=== PATIENT | female | born 1990 | race Caucasian/White ===

== ENCOUNTER 2019-03-15 21:17 | Inpatient (IN) | payer BC ==
[2019-03-15] MEDS ORDERED: Carboprost Tromethamine 250 MCG/1 ML Amp IM PRN (22:37)
[2019-03-15] MEDS ORDERED: Misoprostol 200 MCG Tab PO PRN (22:37)
[2019-03-15] MEDS ORDERED: Lidocaine 1% 50 ML MDV INJECT PRN (22:37)
[2019-03-15] MEDS ORDERED: Sodium Chloride 0.9% 10 ML SDV IV PRN (22:37)
[2019-03-15] MEDS ORDERED: Water For Irrigation,Sterile 1,000 ML Container IRR PRN (22:37)
[2019-03-15] MEDS ORDERED: Tranexamic Acid 1,000 MG in Sodium Chloride 0.9% 100 ML IV PRN (22:37)
[2019-03-15] MEDS ORDERED: Sodium Chloride 0.9% 10 ML Syringe FLUSH PRN (22:37)
[2019-03-15] MEDS ORDERED: Nalbuphine 10 MG/1 ML Vial IVPUSH PRN (22:37)
[2019-03-15] MEDS ORDERED: Butorphanol 1 MG/ML SDV IVPUSH PRN (22:37)
[2019-03-15] MEDS ORDERED: Methylergonovine 0.2 MG/1 ML Amp IM PRN (22:37)
[2019-03-15] MEDS ORDERED: Sodium Chloride 0.9% 2.5 ML Syringe FLUSH PRN (22:37)
[2019-03-15] MEDS ORDERED: Oxytocin/0.9 % Sodium Chloride 30 UNIT/500 ML BAG IV SCH (22:45)
[2019-03-15 23:43] LABS: CHLORIDE,CL 100 mmol/L (98-107); SODIUM,NA 133 mmol/L (136-145)
[2019-03-16] MEDS: Lactated Ringers 1,000 ML IV SCH ×3 (05:45→14:05)
[2019-03-16] MEDS ORDERED: Lidocaine HCl/EPINEPHrine 5 ML IJ ONE (06:08)
[2019-03-16] MEDS ORDERED: fentaNYL 100 MCG/2 ML SDV ONE ×2 (06:09→16:30)
[2019-03-16] MEDS ORDERED: Ropivacaine 0.2% 2 MG/ML 20 ML SDV ONE (06:09)
[2019-03-16] MEDS ORDERED: Ropivacaine HCl/PF 100 ML ONE ×2 (06:10→16:29)
--- NOTE | 2019-03-16 06:50 | PCM.PREANE ---
Preanesthetic Assessment - Anesthesia/Transfusion/Family Hx Anesthesia History: No Prior Anesthesia Family History of Anesthesia Reaction: No Transfusion History: No Prior Transfusion(s) - Review of Systems General: No Symptoms Pulmonary: No Symptoms Cardiovascular: No Symptoms Gastrointestinal: No Symptoms Neurological: No Symptoms Other: Reports: None (Denies any personal or family hx of bleeding or clotting problems) - Physical Assessment Height: 1.65 m Weight: 83.915 kg ASA Class: 2 Mental Status: Alert & Oriented x3 Airway Class: Mallampati = 2 Dentition: Reports: Normal Dentition ROM/Head Extension: Full - Lab Values: Laboratory Last Values WBC 16.46 K/uL (4.0-11.0) H 03/15/19 23:10 RBC 4.53 M/uL (4.30-5.90) 03/15/19 23:10 Hgb 14.0 g/dL (12.0-16.0) 03/15/19 23:10 Hct 40.9 % (36.0-46.0) 03/15/19 23:10 MCV 90.3 fL (80.0-98.0) 03/15/19 23:10 MCH 30.9 pg (27.0-32.0) 03/15/19 23:10 MCHC 34.2 g/dL (31.0-37.0) 03/15/19 23:10 RDW Std Deviation 42.0 fl (28.0-62.0) 03/15/19 23:10 RDW Coeff of Kiera 13 % (11.0-15.0) 03/15/19 23:10 Plt Count 248 K/uL (150-400) 03/15/19 23:10 MPV 11.20 fL (7.40-12.00) 03/15/19 23:10 Nucleated RBC % 0.0 /100WBC 03/15/19 23:10 Nucleated RBCs # 0 K/uL 03/15/19 23:10 Sodium 133 mmol/L (136-145) L 03/15/19 23:10 Potassium 4.4 mmol/L (3.5-5.1) 03/15/19 23:10 Chloride 100 mmol/L (98-107) 03/15/19 23:10 Carbon Dioxide 24.6 mmol/L (21.0-32.0) 03/15/19 23:10 BUN 14 mg/dL (7.0-18.0) 03/15/19 23:10 Creatinine 0.8 mg/dL (0.6-1.0) 03/15/19 23:10 Est Cr Clr Drug Dosing 92.53 mL/min 03/15/19 23:10 Estimated GFR (MDRD) > 60.0 ml/min 03/15/19 23:10 Glucose 103 mg/dL (74-106) 03/15/19 23:10 Uric Acid 4.7 mg/dL (2.6-7.2) 03/15/19 23:10 Calcium 8.9 mg/dL (8.5-10.1) 03/15/19 23:10 Total Bilirubin 0.5 mg/dL (0.2-1.0) 03/15/19 23:10 AST 28 IU/L (15-37) 03/15/19 23:10 ALT 33 IU/L (14-63) 03/15/19 23:10 Alkaline Phosphatase 140 U/L (46-116) H 03/15/19 23:10 Total Protein 6.6 g/dL (6.4-8.2) 03/15/19 23:10 Albumin 2.6 g/dL (3.4-5.0) L 03/15/19 23:10 Globulin 4.0 g/dL (2.6-4.0) 03/15/19 23:10 Albumin/Globulin Ratio 0.7 (0.9-1.6) L 03/15/19 23:10 Urine Color YELLOW 03/15/19 22:40 Urine Appearance HAZY 03/15/19 22:40 Urine pH 5.5 (5.0-8.0) 03/15/19 22:40 Ur Specific [place] 1.020 (1.001-1.035) 03/15/19 22:40 Urine Protein NEGATIVE mg/dL (NEGATIVE) 03/15/19 22:40 Urine Glucose (UA) NEGATIVE mg/dL (NEGATIVE) 03/15/19 22:40 Urine Ketones NEGATIVE mg/dL (NEGATIVE) 03/15/19 22:40 Urine Occult Blood LARGE (NEGATIVE) H 03/15/19 22:40 Urine Nitrite NEGATIVE (NEGATIVE) 03/15/19 22:40 Urine Bilirubin NEGATIVE (NEGATIVE) 03/15/19 22:40 Urine Urobilinogen 0.2 EU/dL (<2.0) 03/15/19 22:40 Ur Leukocyte Esterase NEGATIVE (NEGATIVE) 03/15/19 22:40 Ur Random Creatinine 57.5 mg/dL 03/15/19 22:40 U Random Total Protein 9.1 mg/dL (<11.9) 03/15/19 22:40 Protein/Creatinin Ratio 0.2 03/15/19 22:40 Membrane Rupture POSITIVE 03/15/19 21:38 Blood Type O POSITIVE 03/15/19 23:10 Antibody Screen NEGATIVE 03/15/19 23:10 - Allergies Allergies/Adverse Reactions: Allergies Allergy/AdvReac Type Severity Reaction Status Date / Time No Known Allergies Allergy Verified 02/06/14 14:02 - Acknowledgements Anesthesia Type Planned: Epidural Pt an Appropriate Candidate for the Planned Anesthesia: Yes Alternatives and Risks of Anesthesia Discussed w Pt/Guardian: Yes Pt/Guardian Understands and Agrees with Anesthesia Plan: Yes PreAnesthesia Questionnaire - Past Health History Medical/Surgical History: Denies Medical/Surgical History [employer] History: Reports: Psychiatric History: Reports: Anxiety, Depression - SUBSTANCE USE Smoking Status *Q: Never Smoker Second Hand Smoke Exposure: No Recreational Drug Use History: No - HOME MEDS Home Medications: Home Meds PNV #116/Iron Fumarate/FA/DHA [Expecta Combo Pack] 1 tab 03/06/19 [ History] - CURRENT (IN HOUSE) MEDS Current Meds: Current Medications Butorphanol Tartrate (Stadol) 1 mg IVPUSH Q1H PRN PRN Reason: Pain Carboprost Tromethamine (Hemabate Ds) 250 mcg IM ASDIRECTED PRN PRN Reason: Post Hemorrhage Lactated Ringer's (Ringers, Lactated) 1,000 mls @ 150 mls/hr IV ASDIRECTED YANCY Last Admin: 03/16/19 06:35 Dose: 999 mls/hr Oxytocin/Sodium Chloride (Oxytocin 30 Unit/500 Ml-Ns) 30 unit in 500 mls @ 500 mls/hr IV TITRATE YANCY Tranexamic Acid 1,000 mg/ (Sodium Chloride) 110 mls @ 660 mls/hr IV ONETIME PRN PRN Reason: Bleeding Lidocaine HCl (Xylocaine 1%) 50 ml INJECT ONETIME PRN PRN Reason: Laceration repair Methylergonovine Maleate (Methergine) 0.2 mg IM ASDIRECTED PRN PRN Reason: Post Hemorrhage Misoprostol (Cytotec) 200 mcg PO ONETIME PRN PRN Reason: Post Hemorrhage Nalbuphine HCl (Nubain) 10 mg IVPUSH Q1H PRN PRN Reason: Pain (severe 7-10) Sodium Chloride (Saline Flush) 10 ml FLUSH ASDIRECTED PRN PRN Reason: Keep Vein Open Sodium Chloride (Saline Flush) 2.5 ml FLUSH ASDIRECTED PRN PRN Reason: Keep Vein Open Sodium Chloride (Normal Saline) 10 ml IV ASDIRECTED PRN PRN Reason: IV Use Sterile Water (Sterile Water For Irrigation) 1,000 ml IRR ASDIRECTED PRN PRN Reason: delivery Discontinued Medications Fentanyl (Sublimaze) Confirm Administered Dose 300 mcg .ROUTE .STK-MED ONE Stop: 03/16/19 06:10 Ropivacaine (Naropin 0.2%) Confirm Administered Dose 100 mls @ as directed .ROUTE .STK-MED ONE Stop: 03/16/19 06:11 Lidocaine/Epinephrine (Lidocaine 1.5%-Epi 1:200,000) Confirm Administered Dose 5 ml IJ .STK-MED ONE Stop: 03/16/19 06:09 Ropivacaine (Naropin 0.2%) Confirm Administered Dose 20 ml .ROUTE .STK-MED ONE Stop: 03/16/19 06:10
[2019-03-16] MEDS ORDERED: Terbutaline 1 MG/ML SDV SUBCUT PRN (14:32)
[2019-03-16] MEDS ORDERED: Misoprostol 25 MCG (1/4 of 100 MCG) Tab VAG PRN ×2 (14:32)
[2019-03-16] MEDS ORDERED: Oxytocin/0.9 % Sodium Chloride 30 UNIT/500 ML BAG IV SCH (14:45)
[2019-03-16] MEDS ORDERED: Benzocaine/Menthol 20%-0.5% Spray 78 GM Cannister TOP PRN (18:44)
[2019-03-16] MEDS ORDERED: Bisacodyl 10 MG Supp RECTAL PRN (18:44)
[2019-03-16] MEDS ORDERED: Acetaminophen 500 MG Tab PO PRN ×2 (18:44)
[2019-03-16] MEDS ORDERED: Ibuprofen 400 MG Tab PO PRN (18:44)
[2019-03-16] MEDS ORDERED: Docusate Sodium 100 MG Cap PO PRN (18:44)
[2019-03-16] MEDS ORDERED: oxyCODONE 5 MG Tab PO PRN (18:44)
[2019-03-16] MEDS ORDERED: Witch Hazel Medicated Pads 40/Jar TOP PRN (18:44)
[2019-03-16] MEDS ORDERED: Lanolin 100% Cream 7 GM Tube TOP PRN (18:44)
--- NOTE | 2019-03-16 18:55 | PCM.DEL ---
L & D Note - General Info Date of Service: 03/16/19 Mother's Due Date: 03/13/19 - Delivery Note Labor: Spontaneous, Augmented by Oxytocin Delivery Outcome: Livebirth Infant Delivery Method: Spontaneous Vaginal Delivery-Single Presentation: Left Occiput Anterior (HARSHAL) Nuchal Cord: None Anesthesia Type: Epidural Anesthetic: Lidocaine (Xylocaine) 1% Plain Amniotic Fluid Description: Meconium Stained Laceration: 2nd Degree Suture type: Other (monocryl) Suture size: 2-0 Placenta: Intact Cord: 3 Vessels Estimated Blood Loss: 300 Resuscitation Needed: No Score 1 min: 7 Score 5 min: 9 Delivery Comments (Free Text/Narrative):: Live female delivered at 554pm , 7/9 weight 2960g , thick meconium - General Info Date of Service: 03/16/19 - Patient Data Weight - Most Recent: 83.915 kg I&O - Last 24 Hours: Intake & Output 03/16/19 03/16/19 03/16/19 06:59 14:59 22:59 Intake Total 1000 1000 600 Balance 1000 1000 600 Lab Results Last 24 Hours: Laboratory Results - last 24 hr 03/15/19 03/15/19 03/15/19 Range/Units 21:38 22:40 22:40 WBC (4.0-11.0) K/uL RBC (4.30-5.90) M/uL Hgb (12.0-16.0) g/dL Hct (36.0-46.0) % MCV (80.0-98.0) fL MCH (27.0-32.0) pg MCHC (31.0-37.0) g/dL RDW Std Deviation (28.0-62.0) fl RDW Coeff of Kiera (11.0-15.0) % Plt Count (150-400) K/uL MPV (7.40-12.00) fL Nucleated RBC % /100WBC Nucleated RBCs # K/uL Sodium (136-145) mmol/L Potassium (3.5-5.1) mmol/L Chloride (98-107) mmol/L Carbon Dioxide (21.0-32.0) mmol/L BUN (7.0-18.0) mg/dL Creatinine (0.6-1.0) mg/dL Est Cr Clr Drug Dosing mL/min Estimated GFR (MDRD) ml/min Glucose (74-106) mg/dL Uric Acid (2.6-7.2) mg/dL Calcium (8.5-10.1) mg/dL Total Bilirubin (0.2-1.0) mg/dL AST (15-37) IU/L ALT (14-63) IU/L Alkaline Phosphatase (46-116) U/L Total Protein (6.4-8.2) g/dL Albumin (3.4-5.0) g/dL Globulin (2.6-4.0) g/dL Albumin/Globulin Ratio (0.9-1.6) Urine Color YELLOW Urine Appearance HAZY Urine pH 5.5 (5.0-8.0) Ur Specific [place] 1.020 (1.001-1.035) Urine Protein NEGATIVE (NEGATIVE) mg/dL Urine Glucose (UA) NEGATIVE (NEGATIVE) mg/dL Urine Ketones NEGATIVE (NEGATIVE) mg/dL Urine Occult Blood LARGE H (NEGATIVE) Urine Nitrite NEGATIVE (NEGATIVE) Urine Bilirubin NEGATIVE (NEGATIVE) Urine Urobilinogen 0.2 (<2.0) EU/dL Ur Leukocyte Esterase NEGATIVE (NEGATIVE) Ur Random Creatinine 57.5 mg/dL U Random Total Protein 9.1 (<11.9) mg/dL Protein/Creatinin Ratio 0.2 Membrane Rupture POSITIVE Blood Type Antibody Screen 03/15/19 03/15/19 03/15/19 Range/Units 23:10 23:10 23:10 WBC 16.46 H (4.0-11.0) K/uL RBC 4.53 (4.30-5.90) M/uL Hgb 14.0 (12.0-16.0) g/dL Hct 40.9 (36.0-46.0) % MCV 90.3 (80.0-98.0) fL MCH 30.9 (27.0-32.0) pg MCHC 34.2 (31.0-37.0) g/dL RDW Std Deviation 42.0 (28.0-62.0) fl RDW Coeff of Kiera 13 (11.0-15.0) % Plt Count 248 (150-400) K/uL MPV 11.20 (7.40-12.00) fL Nucleated RBC % 0.0 /100WBC Nucleated RBCs # 0 K/uL Sodium 133 L (136-145) mmol/L Potassium 4.4 (3.5-5.1) mmol/L Chloride 100 (98-107) mmol/L Carbon Dioxide 24.6 (21.0-32.0) mmol/L BUN 14 (7.0-18.0) mg/dL Creatinine 0.8 (0.6-1.0) mg/dL Est Cr Clr Drug Dosing 92.53 mL/min Estimated GFR (MDRD) > 60.0 ml/min Glucose 103 (74-106) mg/dL Uric Acid 4.7 (2.6-7.2) mg/dL Calcium 8.9 (8.5-10.1) mg/dL Total Bilirubin 0.5 (0.2-1.0) mg/dL AST 28 (15-37) IU/L ALT 33 (14-63) IU/L Alkaline Phosphatase 140 H (46-116) U/L Total Protein 6.6 (6.4-8.2) g/dL Albumin 2.6 L (3.4-5.0) g/dL Globulin 4.0 (2.6-4.0) g/dL Albumin/Globulin Ratio 0.7 L (0.9-1.6) Urine Color Urine Appearance Urine pH (5.0-8.0) Ur Specific [place] (1.001-1.035) Urine Protein (NEGATIVE) mg/dL Urine Glucose (UA) (NEGATIVE) mg/dL Urine Ketones (NEGATIVE) mg/dL Urine Occult Blood (NEGATIVE) Urine Nitrite (NEGATIVE) Urine Bilirubin (NEGATIVE) Urine Urobilinogen (<2.0) EU/dL Ur Leukocyte Esterase (NEGATIVE) Ur Random Creatinine mg/dL U Random Total Protein (<11.9) mg/dL Protein/Creatinin Ratio Membrane Rupture Blood Type O POSITIVE Antibody Screen NEGATIVE Med Orders - Current: Current Medications Acetaminophen (Tylenol Extra Strength) 500 mg PO Q4H PRN PRN Reason: Pain Acetaminophen (Tylenol Extra Strength) 1,000 mg PO Q4H PRN PRN Reason: Pain Benzocaine/Menthol (Dermoplast Pain Relief 20%-0.5% [place]) 0 gm TOP ASDIRECTED PRN PRN Reason: Perineal Comfort Measure Bisacodyl (Dulcolax) 10 mg RECTAL ONETIME PRN PRN Reason: Constipation Butorphanol Tartrate (Stadol) 1 mg IVPUSH Q1H PRN PRN Reason: Pain Carboprost Tromethamine (Hemabate Ds) 250 mcg IM ASDIRECTED PRN PRN Reason: Post Hemorrhage Docusate Sodium (Colace) 100 mg PO BID PRN PRN Reason: Constipation Emollient Ointment (Lansinoh Hpa) 0 gm TOP ASDIRECTED PRN PRN Reason: Sore Nipples Lactated Ringer's (Ringers, Lactated) 1,000 mls @ 150 mls/hr IV ASDIRECTED YANCY Last Admin: 03/16/19 14:05 Dose: 150 mls/hr Oxytocin/Sodium Chloride (Oxytocin 30 Unit/500 Ml-Ns) 30 unit in 500 mls @ 500 mls/hr IV TITRATE [facility] Tranexamic Acid 1,000 mg/ (Sodium Chloride) 110 mls @ 660 mls/hr IV ONETIME PRN PRN Reason: Bleeding Oxytocin/Sodium Chloride (Oxytocin 30 Unit/500 Ml-Ns) 30 unit in 500 mls @ 2 mls/hr IV TITRATE [facility]; Protocol Last Titration: 03/16/19 17:55 Dose: 999 munits/min, 999 mls/hr Ibuprofen (Motrin) 400 mg PO Q4H PRN PRN Reason: Pain Ibuprofen (Motrin) 800 mg PO Q6H PRN PRN Reason: Pain Lidocaine HCl (Xylocaine 1%) 50 ml INJECT ONETIME PRN PRN Reason: Laceration repair Methylergonovine Maleate (Methergine) 0.2 mg IM ASDIRECTED PRN PRN Reason: Post Hemorrhage Misoprostol (Cytotec) 200 mcg PO ONETIME PRN PRN Reason: Post Hemorrhage Misoprostol (Cytotec) 25 mcg VAG ONETIME PRN PRN Reason: Cervical Ripening Misoprostol (Cytotec) 25 mcg VAG Q4H PRN PRN Reason: Cervical Ripening Nalbuphine HCl (Nubain) 10 mg IVPUSH Q1H PRN PRN Reason: Pain (severe 7-10) Oxycodone HCl (Oxycodone) 5 mg PO Q2H PRN PRN Reason: Pain Sodium Chloride (Saline Flush) 10 ml FLUSH ASDIRECTED PRN PRN Reason: Keep Vein Open Sodium Chloride (Saline Flush) 2.5 ml FLUSH ASDIRECTED PRN PRN Reason: Keep Vein Open Sodium Chloride (Normal Saline) 10 ml IV ASDIRECTED PRN PRN Reason: IV Use Sterile Water (Sterile Water For Irrigation) 1,000 ml IRR ASDIRECTED PRN PRN Reason: delivery Last Admin: 03/16/19 17:50 Dose: 1,000 ml Witch Michelle (Tucks) 1 pad TOP ASDIRECTED PRN PRN Reason: comfort care Discontinued Medications Fentanyl (Sublimaze) Confirm Administered Dose 300 mcg .ROUTE .STK-MED ONE Stop: 03/16/19 06:10 Fentanyl (Sublimaze) Confirm Administered Dose 200 mcg .ROUTE .STK-MED ONE Stop: 03/16/19 16:31 Ropivacaine (Naropin 0.2%) Confirm Administered Dose 100 mls @ as directed .ROUTE .STK-MED ONE Stop: 03/16/19 06:11 Ropivacaine (Naropin 0.2%) Confirm Administered Dose 100 mls @ as directed .ROUTE .STK-MED ONE Stop: 03/16/19 16:30 Lidocaine/Epinephrine (Lidocaine 1.5%-Epi 1:200,000) Confirm Administered Dose 5 ml IJ .STK-MED ONE Stop: 03/16/19 06:09 Ropivacaine (Naropin 0.2%) Confirm Administered Dose 20 ml .ROUTE .STK-MED ONE Stop: 03/16/19 06:10 Terbutaline Sulfate (Brethine) 0.25 mg SUBCUT ASDIRECTED PRN PRN Reason: Tacysystole - Problem List & Annotations (1) Vaginal delivery SNOMED Code(s): 257592677 Code(s): O80 - ENCOUNTER FOR FULL-TERM UNCOMPLICATED DELIVERY Status: Acute Current Visit: Yes - Problem List Review Problem List Initiated/Reviewed/Updated: Yes - My Orders Last 24 Hours: My Active Orders 03/15/19 22:37 Patient Status [ADT] Routine Heart Tones [RC] CONTINUOUS Non Stress Test [RC] PER UNIT ROUTINE May Shower [RC] ASDIRECTED Notify Provider [RC] PRN Up ad Ale [RC] ASDIRECTED Vaginal Exam [RC] PRN Vital Signs [RC] PER UNIT ROUTINE Butorphanol [Stadol] 1 mg IVPUSH Q1H PRN Carboprost Tromethamine [Hemabate DS] 250 mcg IM ASDIRECTED PRN Lidocaine 1% [Xylocaine 1%] 50 ml INJECT ONETIME PRN Methylergonovine [Methergine] 0.2 mg IM ASDIRECTED PRN Nalbuphine [Nubain] 10 mg IVPUSH Q1H PRN Sodium Chloride 0.9% [Normal Saline] 10 ml IV ASDIRECTED PRN Sodium Chloride 0.9% [Saline Flush] 10 ml FLUSH ASDIRECTED PRN Sodium Chloride 0.9% [Saline Flush] 2.5 ml FLUSH ASDIRECTED PRN Tranexamic Acid [Cyklokapron] 1,000 mg Sodium Chloride 0.9% [Normal Saline] 100 ml IV ONETIME Water For Irrigation,Sterile [Sterile Water for Irrigation] 1,000 ml IRR ASDIRECTED PRN miSOPROStol [Cytotec] 200 mcg PO ONETIME PRN Peripheral IV Insertion Adult [OM.PC] Routine 03/15/19 22:45 Lactated Ringers [Ringers, Lactated] 1,000 ml IV ASDIRECTED Oxytocin/0.9 % Sodium Chloride [Oxytocin 30 Unit/500 ML-NS] 30 unit in 500 ml IV TITRATE 03/16/19 14:32 Bedrest Bathroom Privileges [RC] ASDIRECTED Communication Order [RC] ASDIRECTED Communication Order [RC] ASDIRECTED Communication Order [RC] ASDIRECTED Notify Provider [RC] PRN Notify Provider [RC] PRN Notify Provider [RC] STAT Oxygen Therapy [RC] ASDIRECTED Vaginal Exam [RC] PRN Vital Signs [RC] PER UNIT ROUTINE miSOPROStol [Cytotec] 25 mcg VAG ONETIME PRN miSOPROStol [Cytotec] 25 mcg VAG Q4H PRN 03/16/19 14:45 Oxytocin/0.9 % Sodium Chloride [Oxytocin 30 Unit/500 ML-NS] 30 unit in 500 ml IV TITRATE Medication Administration Instruction [OM.PC] Q3H 03/16/19 17:54 BLOOD GAS ARTERIAL UMBILICAL [BG] Stat BLOOD GAS VENOUS UMBILICAL [BG] Stat 03/16/19 18:44 Patient Status [ADT] Routine May Shower [RC] ASDIRECTED Up ad Ale [RC] ASDIRECTED Vital Signs [RC] PER UNIT ROUTINE Acetaminophen [Tylenol Extra Strength] 1,000 mg PO Q4H PRN Acetaminophen [Tylenol Extra Strength] 500 mg PO Q4H PRN Benzocaine/Menthol [Dermoplast Pain Relief 20%-0.5% [place]] 0 gm TOP ASDIRECTED PRN Bisacodyl [Dulcolax] 10 mg RECTAL ONETIME PRN Docusate Sodium [Colace] 100 mg PO BID PRN Ibuprofen [Motrin] 400 mg PO Q4H PRN Ibuprofen [Motrin] 800 mg PO Q6H PRN Lanolin [Lansinoh HPA] See Dose Instructions TOP ASDIRECTED PRN Witch Michelle [Tucks] 1 pad TOP ASDIRECTED PRN oxyCODONE 5 mg PO Q2H PRN Assess Lochia [WOMSER] Per Unit Routine Assess Uterine Involution [WOMSER] Per Unit Routine Peripheral IV Discontinue [OM.PC] Routine 03/17/19 05:11 HEMOGLOBIN/HEMATOCRIT,HH [HEME] Timed
--- NOTE | 2019-03-16 20:32 | OR ---
SURGEON: CIERRA VIVAS DATE OF PROCEDURE: 03/16/2019 PREOPERATIVE DIAGNOSES: A 28-year-old G3, P 0-0-2-0, at 40 weeks and 3 days, admitted in early labor with SROM ,Gestational hypertension. POSTOPERATIVE DIAGNOSES: A 28-year-old G3, P 0-0-2-0, at 40 weeks and 3 days, admitted in early labor with SROM and Gestational hypertension Second-degree vaginal laceration. PROCEDURE PERFORMED: Normal spontaneous vaginal delivery and repair of second-degree vaginal laceration. EBL: 300. IV FLUID: Pitocin running. ANESTHESIA: Epidural. NOTES AND FINDING: Live female delivered at 5:54 p.m. score is 7 and 9, weight is 2960 g. BRIEF HISTORY: She is a 28-year-old G3, P 0-0-2-0 at 40 weeks and 3 days, who came in complaining of rupture of membranes. She was 1 cm dilated. She also had some contraction. She had a normal labor course and became fully dilated. During the labor course, it was noted that patient had some elevated blood pressure, however, to 160s/110s. At that point, she was offered magnesium, she declined. She got an epidural and her blood pressures came between 120s to 140s over 80s to 70s, so the patient is being fully dilated. She was encouraged to push. DESCRIPTION OF PROCEDURE: With good pushing effort, she delivered head, subsequently body, anterior and posterior shoulders, the baby was delivered. Baby was placed on maternal abdomen. Delayed cord clamping was observed. The placenta was delivered via controlled cord traction. The perineum was inspected. A second-degree laceration was noted, which was sutured with 2-0 Monocryl. Hemostasis was noted. All instrument and pad counts were correct x2. Patient tolerated the procedure well and was left in Labor and Delivery room in stable condition. KACIE BARNHART /[id number] MTDD
[2019-03-16] MEDS: Ibuprofen 800 MG Tab PO PRN (21:36)
[2019-03-17] MEDS: Ibuprofen 800 MG Tab PO PRN (08:04)
--- NOTE | 2019-03-17 09:48 | PCM48HPAN ---
Post Anesthesia Note - EVALUATION WITHIN 48HRS OF ANESTHETIC Vital Signs in Normal Range: Yes Patient Participated in Evaluation: Yes Respiratory Function Stable: Yes Airway Patent: Yes Cardiovascular Function Stable: Yes Hydration Status Stable: Yes Pain Control Satisfactory: Yes Nausea and Vomiting Control Satisfactory: Yes Mental Status Recovered: Yes Resp Rate: 16 - COMMENTS/OBSERVATIONS Free Text/Narrative:: Denies any complaints
--- NOTE | 2019-03-17 11:01 | PCM.PNPP ---
- General Info Date of Service: 03/17/19 Functional Status: Reports: Pain Controlled, Tolerating Diet, Ambulating, Urinating - Review of Systems General: Reports: No Symptoms HEENT: Reports: No Symptoms Pulmonary: Reports: No Symptoms Cardiovascular: Reports: No Symptoms Gastrointestinal: Reports: No Symptoms Genitourinary: Reports: No Symptoms Musculoskeletal: Reports: No Symptoms Skin: Reports: No Symptoms Neurological: Reports: No Symptoms Psychiatric: Reports: No Symptoms - General Info Date of Service: 03/17/19 - Patient Data Vital Signs - Most Recent: Last Vital Signs Temp 36.4 C 03/17/19 07:33 Pulse 85 03/17/19 07:33 Resp 16 03/17/19 09:48 BP 140/81 03/17/19 07:33 Pulse Ox 97 03/17/19 07:33 Weight - Most Recent: 83.915 kg I&O - Last 24 Hours: Intake & Output 03/16/19 03/17/19 03/17/19 22:59 06:59 14:59 Intake Total 600 Balance 600 Lab Results - Last 24 Hours: Laboratory Results - last 24 hr 03/16/19 03/17/19 Range/Units 17:54 06:38 Hgb 13.4 (12.0-16.0) g/dL Hct 39.0 (36.0-46.0) % Cord ABG pH 7.182 (7.18-7.38) Cord ABG Base Excess -9 (-10--2) Cord VBG pH 7.271 (7.25-7.45) Cord VBG Base Excess -6 (-10--2) Med Orders - Current: Current Medications Acetaminophen (Tylenol Extra Strength) 500 mg PO Q4H PRN PRN Reason: Pain Acetaminophen (Tylenol Extra Strength) 1,000 mg PO Q4H PRN PRN Reason: Pain Benzocaine/Menthol (Dermoplast Pain Relief 20%-0.5% [place]) 0 gm TOP ASDIRECTED PRN PRN Reason: Perineal Comfort Measure Last Admin: 03/16/19 21:37 Dose: 1 canister Bisacodyl (Dulcolax) 10 mg RECTAL ONETIME PRN PRN Reason: Constipation Butorphanol Tartrate (Stadol) 1 mg IVPUSH Q1H PRN PRN Reason: Pain Carboprost Tromethamine (Hemabate Ds) 250 mcg IM ASDIRECTED PRN PRN Reason: Post Hemorrhage Docusate Sodium (Colace) 100 mg PO BID PRN PRN Reason: Constipation Emollient Ointment (Lansinoh Hpa) 0 gm TOP ASDIRECTED PRN PRN Reason: Sore Nipples Lactated Ringer's (Ringers, Lactated) 1,000 mls @ 150 mls/hr IV ASDIRECTED YANCY Last Admin: 03/16/19 14:05 Dose: 150 mls/hr Oxytocin/Sodium Chloride (Oxytocin 30 Unit/500 Ml-Ns) 30 unit in 500 mls @ 500 mls/hr IV TITRATE YANCY Tranexamic Acid 1,000 mg/ (Sodium Chloride) 110 mls @ 660 mls/hr IV ONETIME PRN PRN Reason: Bleeding Oxytocin/Sodium Chloride (Oxytocin 30 Unit/500 Ml-Ns) 30 unit in 500 mls @ 2 mls/hr IV TITRATE YANCY; Protocol Last Titration: 03/16/19 17:55 Dose: 999 munits/min, 999 mls/hr Ibuprofen (Motrin) 400 mg PO Q4H PRN PRN Reason: Pain Ibuprofen (Motrin) 800 mg PO Q6H PRN PRN Reason: Pain Last Admin: 03/17/19 08:04 Dose: 800 mg Lidocaine HCl (Xylocaine 1%) 50 ml INJECT ONETIME PRN PRN Reason: Laceration repair Last Admin: 03/16/19 18:00 Dose: 50 ml Methylergonovine Maleate (Methergine) 0.2 mg IM ASDIRECTED PRN PRN Reason: Post Hemorrhage Misoprostol (Cytotec) 200 mcg PO ONETIME PRN PRN Reason: Post Hemorrhage Misoprostol (Cytotec) 25 mcg VAG ONETIME PRN PRN Reason: Cervical Ripening Misoprostol (Cytotec) 25 mcg VAG Q4H PRN PRN Reason: Cervical Ripening Nalbuphine HCl (Nubain) 10 mg IVPUSH Q1H PRN PRN Reason: Pain (severe 7-10) Oxycodone HCl (Oxycodone) 5 mg PO Q2H PRN PRN Reason: Pain Sodium Chloride (Saline Flush) 10 ml FLUSH ASDIRECTED PRN PRN Reason: Keep Vein Open Sodium Chloride (Saline Flush) 2.5 ml FLUSH ASDIRECTED PRN PRN Reason: Keep Vein Open Sodium Chloride (Normal Saline) 10 ml IV ASDIRECTED PRN PRN Reason: IV Use Sterile Water (Sterile Water For Irrigation) 1,000 ml IRR ASDIRECTED PRN PRN Reason: delivery Last Admin: 03/16/19 17:50 Dose: 1,000 ml Witch Michelle (Tucks) 1 pad TOP ASDIRECTED PRN PRN Reason: comfort care Last Admin: 03/16/19 21:37 Dose: 1 container Discontinued Medications Fentanyl (Sublimaze) Confirm Administered Dose 300 mcg .ROUTE .STK-MED ONE Stop: 03/16/19 06:10 Last Admin: 03/17/19 07:22 Dose: Not Given Fentanyl (Sublimaze) Confirm Administered Dose 200 mcg .ROUTE .STK-MED ONE Stop: 03/16/19 16:31 Last Admin: 03/17/19 07:22 Dose: Not Given Ropivacaine (Naropin 0.2%) Confirm Administered Dose 100 mls @ as directed .ROUTE .STK-MED ONE Stop: 03/16/19 06:11 Last Admin: 03/17/19 07:22 Dose: Not Given Ropivacaine (Naropin 0.2%) Confirm Administered Dose 100 mls @ as directed .ROUTE .STK-MED ONE Stop: 03/16/19 16:30 Last Admin: 03/17/19 07:22 Dose: Not Given Lidocaine/Epinephrine (Lidocaine 1.5%-Epi 1:200,000) Confirm Administered Dose 5 ml IJ .STK-MED ONE Stop: 03/16/19 06:09 Last Admin: 03/17/19 07:22 Dose: Not Given Ropivacaine (Naropin 0.2%) Confirm Administered Dose 20 ml .ROUTE .STK-MED ONE Stop: 03/16/19 06:10 Last Admin: 03/17/19 07:22 Dose: Not Given Terbutaline Sulfate (Brethine) 0.25 mg SUBCUT ASDIRECTED PRN PRN Reason: Tacysystole - Infant Interaction Support Person: - Recovery Exam Fundal Tone: Firm Fundal Level: At Umbilicus Fundal Placement: Midline Lochia Amount: Small Lochia Color: Rubra/Red Perineum Description: Intact, Minimal Bruising/Swelling Episiotomy/Laceration: Approximated - Exam General: Alert HEENT: Pupils Equal, Pupils Reactive Neck: Supple Lungs: Clear to Auscultation Cardiovascular: Regular Rate, Regular Rhythm GI/Abdominal Exam: Normal Bowel Sounds Psy/Mental Status: Alert - Problem List & Annotations (1) Vaginal delivery SNOMED Code(s): 159798970 Code(s): O80 - ENCOUNTER FOR FULL-TERM UNCOMPLICATED DELIVERY Status: Acute Current Visit: Yes - Problem List Review Problem List Initiated/Reviewed/Updated: No - My Orders Last 24 Hours: My Active Orders 03/16/19 14:32 Oxygen Therapy [RC] ASDIRECTED Vaginal Exam [RC] PRN miSOPROStol [Cytotec] 25 mcg VAG ONETIME PRN miSOPROStol [Cytotec] 25 mcg VAG Q4H PRN 03/16/19 14:45 Oxytocin/0.9 % Sodium Chloride [Oxytocin 30 Unit/500 ML-NS] 30 unit in 500 ml IV TITRATE Medication Administration Instruction [OM.PC] Q3H 03/16/19 18:44 Patient Status [ADT] Routine May Shower [RC] ASDIRECTED Up ad Ale [RC] ASDIRECTED Vital Signs [RC] PER UNIT ROUTINE Acetaminophen [Tylenol Extra Strength] 1,000 mg PO Q4H PRN Acetaminophen [Tylenol Extra Strength] 500 mg PO Q4H PRN Benzocaine/Menthol [Dermoplast Pain Relief 20%-0.5% [place]] 0 gm TOP ASDIRECTED PRN Bisacodyl [Dulcolax] 10 mg RECTAL ONETIME PRN Docusate Sodium [Colace] 100 mg PO BID PRN Ibuprofen [Motrin] 400 mg PO Q4H PRN Ibuprofen [Motrin] 800 mg PO Q6H PRN Lanolin [Lansinoh HPA] See Dose Instructions TOP ASDIRECTED PRN Witch Michelle [Tucks] 1 pad TOP ASDIRECTED PRN oxyCODONE 5 mg PO Q2H PRN Assess Lochia [WOMSER] Per Unit Routine Assess Uterine Involution [WOMSER] Per Unit Routine Peripheral IV Discontinue [OM.PC] Routine 03/17/19 Breakfast Regular Diet [DIET] - Assessment Assessment:: 28yo P1 s/p denies headache , RUQ pain and BV Pain control adequate , BPs mild range , normal range - Plan Plan:: Routine care Discharge home today with strict preeclampsia precautions
== END 2019-03-17 20:45 | disposition home or self-care (01) | DRG 560 ==
LOC: MW.OBCHECK 21:17 → MW.OB 21:19 → MW.OBCHECK 22:37 → OBSVTOIN 03-16 18:44 → MW.OB 03-16 21:00
PROVIDERS: ADMIT Obstetrics & Gynecology; ATTEND Obstetrics & Gynecology
PROC: 10E0XZZ Delivery of Products of Conception, External Approach (ICD-10-PCS; principal; 2019-03-16)
PROC: 0KQM0ZZ Repair Perineum Muscle, Open Approach (ICD-10-PCS; principal; 2019-03-16)
PROC: 3E0R3BZ Introduction of Anesthetic Agent into Spinal Canal, Percutaneous Approach (ICD-10-PCS; 2019-03-16)
PROC: 00HU33Z Insertion of Infusion Device into Spinal Canal, Percutaneous Approach (ICD-10-PCS; 2019-03-16)
DX: O13.4 Gestational [pregnancy-induced] hypertension without significant proteinuria, complicating childbirth (principal); O99.344 Other mental disorders complicating childbirth; O77.0 Labor and delivery complicated by meconium in amniotic fluid; O70.1 Second degree perineal laceration during delivery; F41.9 Anxiety disorder, unspecified; F32.9 Major depressive disorder, single episode, unspecified; Z3A.40 40 weeks gestation of pregnancy; Z37.0 Single live birth
CPT/HCPCS: 01967; 36415; 51702; 59025; 59409; 80053; 81003; 82570; 82803; 84112; 84156; 84550; 85014; 85018; 85027; 86850; 86900; 86901; A9270-GY; J2001; J2590; J2795; J3010; J7120